=== PATIENT | male | born 1990 | race Caucasian/White ===

== ENCOUNTER 2022-12-29 14:07 | Inpatient (IN) ==
[2022-12-29] MEDS ORDERED: IOPAMIDOL 100 ML BOTTLE IV ONE (14:08)
[2022-12-29] MEDS ORDERED: 0.9 % SODIUM CHLORIDE 500 ML IV ONE (14:49)
--- NOTE | 2022-12-29 15:03 | Emergency Department Note ---
HPI General Chief complaint: Extremity Problem,Nontraumatic Stated complaint: ankle problem Time Seen by Provider: 12/29/22 14:09 Source: patient Mode of arrival: wheelchair Limitations: physical limitation (Unable to bear weight to right foot due to pain) History of Present Illness HPI Narrative: Narrative: 32-year-old male with long history of alcoholic cirrhosis presents to the ER with complaints of pain and swelling to his right ankle that started approximately a week ago. He did have a fall a few days before that in the past year and has a scrape to his left inner leg and a scrape to his right daly. He notes he has not been able to walk due to severe pain. He does not has a history of gout and has stopped drinking alcohol due to his severe jaundice and elevated liver. He notes he has been seeing GI and they diagnosed him with erythema nodosum approximately 1 week ago. Patient notes he has not taken his lactulose for the past 2 days as he has been unable to bear weight but is otherwise compliant Related Data Home Medications Medication Instructions Recorded Confirmed acamprosate 333 mg tablets in a 666 mg PO TID 10/27/22 11/19/22 dose pack escitalopram oxalate 5 mg tablet 5 mg PO HS 10/27/22 11/19/22 folic acid 1 mg tablet 1 mg PO DAILY 10/27/22 11/19/22 hydroxyzine HCl 25 mg tablet 25 mg PO PRN PRN Anxiety 10/27/22 11/19/22 smqowabm-bxekrzfp-vawqo acid 400 1 tab PO DAILY 10/27/22 11/19/22 mcg-vit K 20 mcg-lycop 300 mcg tablet omeprazole 20 mg capsule,delayed 20 mg PO DAILY PRN Acid Reflux 10/27/22 11/19/22 release ondansetron 4 mg disintegrating 8 mg translingual Q8HP PRN Nausea 10/27/22 11/19/22 tablet thiamine HCl (vitamin B1) 100 mg 100 mg PO DAILY 10/27/22 11/19/22 tablet Previous Rx's Medication Instructions Recorded lactulose 20 gram/30 mL oral 20 g (30 mL) PO QDAY #1,200 mL 10/27/22 solution Allergies Allergy/AdvReac Type Severity Reaction Status Date / Time latex Allergy Unknown Rash Verified 12/29/22 14:18 Review of Systems ROS ROS Narrative: Narrative: Constitutional: Reports as per HPI; Denies fever, chills or sweats Cardiovascular: Denies chest pain, palpitations or syncope Respiratory: Denies shortness of breath, cough or wheezes Gastrointestinal: Denies abdominal pain, nausea or vomiting [facility] Narrative Patient History Narrative: Narrative: Medical/Surgical/Family History All Active Problems (Updated 12/29/22 @ 19:21 by CECILIA Cristina) Abdominal pain, right upper quadrant (Acute) Sepsis (Acute) Cellulitis and abscess of right lower extremity (Acute) Alcoholic hepatitis (Acute) Hyperammonemia (Acute) Hyperbilirubinemia (Acute) Social History Smoking Status: Never smoker Alcohol Intake Frequency: does not drink Substance Use: does not use Exam Narrative Narrative: Narrative: General Limitations: physical limitation (Unable to bear weight to right foot due to pain) General appearance: Present alert and in no apparent distress; Absent in distress Eye Eye: Present scleral icterus ENT ENT: Present normal exam Respiratory Respiratory: Present normal lung sounds bilaterally and wheezes; Absent respiratory distress Cardiovascular Cardiovascular: Present normal rhythm and tachycardia Adbominal Abdominal: Present soft; Absent distention, tenderness or guarding Extremities Extremities: Present tenderness and normal capillary refill Expanded Lower Extremity Hip/Pelvis: Present deformity (Significant localized tenderness, erythema with deformity as right medial malleolus is bulging and fluctuant. Neurovascular status intact. Site extremely tender to palpation.) and other (No posterior calf tenderness on exam) Upper leg: Present normal inspection Neurological Neurological: Present alert and oriented X3 Psychiatric Psychiatric: Present normal affect, polite and pleasant Skin Skin: Present warm (WNL) and other (Healing abrasion to left medial upper calf and healing abrasion to anterior right daly that extends ankle. ); Absent normal color (Jaundice) Course Vital Signs Vital signs: Vital Signs Temperature 97.5 F 12/29/22 14:15 Pulse Rate 138 H 12/29/22 14:15 Respiratory Rate 26 H 12/29/22 14:15 Blood Pressure 97/57 12/29/22 14:15 Pulse Oximetry (%) 99 12/29/22 14:15 Oxygen Delivery Method Room Air 12/29/22 14:15 Temperature 97.5 F 12/29/22 14:15 Pulse Rate 124 H 12/29/22 15:42 Respiratory Rate 20 12/29/22 15:15 Blood Pressure 130/60 12/29/22 15:37 Pulse Oximetry (%) 100 12/29/22 15:42 Oxygen Delivery Method Room Air 12/29/22 14:15 MDM MDM Narrative Medical decision making narrative: Narrative: Clinical considerations include but not limited to sepsis, gout, septic arthritis. On arrival a IV is started and patient is given IV fluids per sepsis protocol. CBC, procalcitonin, lactic acid, sed rate, CRP, INR labs are ordered and are pending. Blood cultures are also ordered and are pending. He is given 3.37 mg of Zosyn. Remain concerned about sepsis as patient remains tachycardic and tachypneic. He denies shortness of breath and has clear lung sounds on exam. He is also afebrile. He does have some mild anxiety about the pain. The site is exquisitely tender to touch. His significant other remains at bedside. Contacted orthopedist to obtain admission-unable to track down orthopedist at this time as medical surgical has is found to Contacted hospitalist who requested that we obtain an ammonia level despite patient being alert and oriented. An INR is also ordered. Consulted orthopedist who came to bedside and saw patient and reported the patient would be taken to the OR for a washout either tonight or in the morning. He agreed to admission Contacted the hospitalist who agreed the patient need to be admitted. They will arrange admission at this time. He will be switched to vancomycin at this time. This patient required multiple bedside evaluations including hospitalist, orthopedist. Sepsis Date Sepsis Identified: 12/29/22 Time Sepsis Identified: 15:20 Lab Data 12/29/22 15:00 Labs: Lab Results 12/29/22 12/29/22 12/29/22 Range/Units 15:00 15:00 15:00 WBC 14.7 H (4.5-11.0) K/mcL RBC 2.86 L (4.63-6.08) M/mcL Hgb 9.3 L (13.7-17.5) g/dL Hct 25.5 L (40.1-51.0) % POC Hct 33.0 L (41-55) MCV 89.2 (80.0-100.0) fL MCH 32.5 (26.0-34.0) pg MCHC 36.5 H (31.0-36.0) g/dL RDW 20.3 H (11.5-14.5) % Plt Count 112 L (140-440) K/mcL MPV 10.6 (8.8-12.5) fL Immature Gran % (Auto) 1.3 H (0.0-0.5) % Neut % (Auto) 80.0 H (38.0-78.0) % Lymph % (Auto) 6.1 L (15.5-49.0) % [place] % (Auto) 11.2 (1.0-12.0) % Eos % (Auto) 1.3 (0.0-7.0) % Baso % (Auto) 0.1 (0.0-2.0) % Lymph # (Auto) 0.90 L (1.50-4.80) K/mcL [place] # (Auto) 1.65 H (0.10-0.90) K/mcL Eos # (Auto) 0.19 (0.00-0.70) K/mcL Baso # (Auto) 0.02 (0.00-0.30) K/mcL Immature Gran # 0.19 H (0.00-0.05) K/mcl Absolute Neutrophils 11.76 H (1.80-8.00) K/mcL ESR (0-15) mm/hr POC VBG pH (7.32-7.42) POC VBG pCO2 at Temp (41-51) POC VBG pO2 (25-40) POC VBG HCO3 (24-28) POC VBG Total CO2 (25-29) POC Venous O2 Sat (40-70) POC VBG Base Excess (-2-2) VBG Lactic Acid (0.5-2) POC Sodium 129 L (133-145) POC Potassium 3.5 (3.3-5.1) POC Chloride 97 (96-108) POC Total CO2 20.0 L (22-30) POC Anion Gap 16.0 (8.0-16.0) POC BUN 35 H (6-20) POC Creatinine 1.0 (0.6-1.2) POC Glucose 201 H (70-105) POC WB Ioniz Calcium 1.11 L (1.16-1.32) C-React Prot High Sens 40.2 H (1.0-3.0) mg/L Procalcitonin (<0.10) ng/mL 12/29/22 12/29/22 12/29/22 Range/Units 15:00 15:00 15:01 WBC (4.5-11.0) K/mcL RBC (4.63-6.08) M/mcL Hgb (13.7-17.5) g/dL Hct (40.1-51.0) % POC Hct (41-55) MCV (80.0-100.0) fL MCH (26.0-34.0) pg MCHC (31.0-36.0) g/dL RDW (11.5-14.5) % Plt Count (140-440) K/mcL MPV (8.8-12.5) fL Immature Gran % (Auto) (0.0-0.5) % Neut % (Auto) (38.0-78.0) % Lymph % (Auto) (15.5-49.0) % [place] % (Auto) (1.0-12.0) % Eos % (Auto) (0.0-7.0) % Baso % (Auto) (0.0-2.0) % Lymph # (Auto) (1.50-4.80) K/mcL [place] # (Auto) (0.10-0.90) K/mcL Eos # (Auto) (0.00-0.70) K/mcL Baso # (Auto) (0.00-0.30) K/mcL Immature Gran # (0.00-0.05) K/mcl Absolute Neutrophils (1.80-8.00) K/mcL ESR 6 (0-15) mm/hr POC VBG pH 7.39 (7.32-7.42) POC VBG pCO2 at Temp 32.5 L (41-51) POC VBG pO2 34 (25-40) POC VBG HCO3 19.8 L (24-28) POC VBG Total CO2 21.0 L (25-29) POC Venous O2 Sat 66.0 (40-70) POC VBG Base Excess -5.0 L (-2-2) VBG Lactic Acid 2.4 H (0.5-2) POC Sodium (133-145) POC Potassium (3.3-5.1) POC Chloride (96-108) POC Total CO2 (22-30) POC Anion Gap (8.0-16.0) POC BUN (6-20) POC Creatinine (0.6-1.2) POC Glucose (70-105) POC WB Ioniz Calcium (1.16-1.32) C-React Prot High Sens (1.0-3.0) mg/L Procalcitonin 0.73 H (<0.10) ng/mL Procedures I/D Consent obtained: verbal consent (Orthopedic and DAM TENDER ASSISTANT completed I&D) Site: leg (Right ankle) Side (if applicable): right Sedation/analgesia: none Technique: needle aspiration Amount of fluid: 30 (30 cc of serosanguineous fluid was drained from site) Irrigation: No Packing used?: none Discharge Plan Patient/Caregiver Discharge Instructions Pt seen by DAM TENDER ASSISTANT/PA only: Yes Clinical Impression: Sepsis, Cellulitis and abscess of right lower extremity, Alcoholic hepatitis Patient Disposition: Xfer As Inpt ([facility]) Discharge Date/Time: 12/29/22 19:00
[2022-12-29 15:04] LABS: POC Calcium, Ionized 1.11 (1.16-1.32); POC Potassium 3.5 (3.3-5.1)
[2022-12-29] MEDS: PIPERACILLIN SODIUM/TAZOBACTAM 3.375 GM in DEXTROSE 5% IN WATER 50 ML IV SCH ×2 (15:35→21:44)
[2022-12-29 15:48] LABS: Basophils # (Auto) 0.02 K/mcL (0.00-0.30); Basophils % (Auto) 0.1 % (0.0-2.0); Eosinophils # (Auto) 0.19 K/mcL (0.00-0.70); Eosinophils % (Auto) 1.3 % (0.0-7.0); Hematocrit 25.5 % (40.1-51.0); Hemoglobin 9.3 g/dL (13.7-17.5); Lymphocytes % (Auto) 6.1 % (15.5-49.0); Mean Cell Volume 89.2 fL (80.0-100.0); Mean Corpuscular HGB Conc 36.5 g/dL (31.0-36.0); Mean Platelet Volume 10.6 fL (8.8-12.5); Monocytes # (Auto) 1.65 K/mcL (0.10-0.90); Monocytes % (Auto) 11.2 % (1.0-12.0); Platelet Count 112 K/mcL (140-440); RBC 2.86 M/mcL (4.63-6.08); Red Cell Distribution Width 20.3 % (11.5-14.5); WBC 14.7 K/mcL (4.5-11.0)
--- NOTE | 2022-12-29 15:54 | Cat Scan Report ---
INDICATION: Cellulitis with abscess TECHNIQUE: Axial images through the right ankle. Sagittal and coronal reformatted images. Intravenous contrast material was administered. Scans were performed during venous phase COMPARISON: Previous plain film examination dated 12/15/2022 FINDINGS: There is a subcutaneous fluid collection which is medial and superficial to the medial malleolus. This fluid collection measures 5.7 cm in AP dimension, 2.7 cm in mediolateral dimension, and 6.5 cm in craniocaudal dimension. There are no gas bubbles within this fluid collection. There are superficial veins which traverse this fluid collection. There is no contrast extravasation or pooling. CT appearance is nonspecific. This may be an abscess secondary to nongas forming organisms. Sterile hematoma or seroma are possible. No osseous abnormality. There is no cortical destruction. No evidence for osteomyelitis. Distal tibia is negative. No evidence for tibiotalar joint effusion. Talus and calcaneus are negative. No soft tissue foreign body IMPRESSION: 1. Soft tissue fluid collection superficial to the medial malleolus and distal tibia. This fluid collection measures 5.7 x 2.7 x 6.5 cm 2. No gas bubbles are present but abscess is not excluded 3. Osseous structures are negative. No evidence for osteomyelitis Interpreted and Authenticated by: Donta Brooks 12/29/22
[2022-12-29 17:04] LABS: POC INR 1.7 (0.8-1.2); POC Pro Time 19.9 (11.9-14.5)
--- NOTE | 2022-12-29 17:42 | Internal Med History&Physical ---
HPI History of Present Illness Patient information: Note initiated : 12/29/22 at 5:40 pm Service Date, if different from initiated Date: [] Patient: Lorenzo Iraheta 32 y/o M admitted on for ankle problem. Chief Complaint: [] History of present illness: Patient is a 32 years old male with past medical history of alcoholic cirrhosis with portal hypertension, moderate ascites and splenomegaly, perisplenic and perigastric varices, severe alcoholic hepatitis on prednisone, hyperammonemia, alcohol use disorder, currently off alcohol noted area of redness on his right ankle about a week ago. Patient has been seeing GI on regular basis. Patient is on prednisone 40 mg daily for alcoholic hepatitis for about a month now. He also takes spironolactone for cirrhosis. Patient reports he has been off alcohol for 78 days now. About a week ago he noted redness on his right ankle, GI thought it was erythema nodosum. Since then it has been enlarging in size, becoming painful with superficial skin scaly skin. It is very tender to touch. He reports no fever or chills. He reports no history of MRSA. On presentation patient had tachycardia heart rate 138, tachypnea respiratory rate 26, afebrile, BP 97/57. WBC 14,000 down from 24,000 a month ago, hemoglobin 9.3, platelets 112. Lactic acid 2.4, sodium 129, potassium 3.5, glucose 201. CRP 40, procalcitonin 0.73, ESR 6. CT scan right ankle showed fluid collection medial and superficial to medial malleolus and tibia measuring 6.5 x 5.7 x 2.5 cm. I discussed case with ER and recommended orthopedic consult, CMP, coagulation profile and ammonia level which are still pending. Review of system Patient reports no fever but some chills No headache, no visual problems, no diplopia No neck pain Denies shortness of breath, cough, sputum production No nausea vomiting or diarrhea No dysuria or hematuria Denies excessive thirst or cold Denies depression Physical examination Alert and awake, pleasant male, in no acute distress Skin Normocephalic, atraumatic Scleral icterus present Chest is clear bilaterally S1 and S2, sinus tachycardia, no murmurs heard Abdomen is mildly distended, soft and nontender otherwise. Mild fluid thrill Alert and oriented, no focal deficits Right ankle has 2 distinct area of fluid collection right malleolus, there is erythema, there is a scab but no active discharge, skin is dry. Exquisite tenderness on palpation. No drainage. Distal neurovascular intact. Appropriate mood and pleasant affect Assessment and plan Sepsis. Patient presented with tachycardia heart rate 138, tachypnea respiratory rate 26, leukocytosis 14,000 and right ankle abscess. Right ankle abscess. CT scan showing fluid collection superficial to medial malleolus and tibia measuring 6.5 x 5.7 x 2.5 cm. Empiric coverage with IV Zosyn and vancomycin. Discussed with the ER patient needs orthopedic consult. Blood cultures done. Recommend abscess culture to be sent when aspirated or drained. Alcoholic liver cirrhosis with ascites. Recommend obtaining CMP, coagulation profile and ammonia, particularly important if surgical intervention warranted. Depending on chemistry, if alcoholic hepatitis is improving may need to hold off on steroid due to infection. Will hold off on diuretics for today and plan to resume by tomorrow. Recommend continue follow-up with GI. Hepatic encephalopathy. Currently patient is mentating well. Recommended ED to obtain ammonia level. We will continue with lactulose Alcoholic hepatitis. Patient has been receiving treatment per GI. CMP pending Alcohol use disorder. Patient states he has been clear of alcohol for 78 days now. Encouraged him to remain abstinent. DVT prophylaxis with SCDs. Full code Total time taken 55 minutes. PFSH PFSH All Active Problems (Updated 12/03/22 @ 15:18 by Luis Felipe Palomares MD) Abdominal pain, right upper quadrant (Acute) Alcoholic hepatitis (Acute) Hyperammonemia (Acute) Hyperbilirubinemia (Acute) Social History smoking status: Never smoker MEDS/ALLERGIES Home Medications and Allergies Home Medications Medication Instructions Recorded Confirmed Type acamprosate 333 mg tablets in a 666 mg PO TID 10/27/22 11/19/22 History dose pack escitalopram oxalate 5 mg tablet 5 mg PO HS 10/27/22 11/19/22 History folic acid 1 mg tablet 1 mg PO DAILY 10/27/22 11/19/22 History hydroxyzine HCl 25 mg tablet 25 mg PO PRN PRN Anxiety 10/27/22 11/19/22 History lactulose 20 gram/30 mL oral 20 g (30 mL) PO QDAY #1,200 mL 10/27/22 11/19/22 Rx solution bieaopxs-hyendexn-hihfv acid 400 1 tab PO DAILY 10/27/22 11/19/22 History mcg-vit K 20 mcg-lycop 300 mcg tablet omeprazole 20 mg capsule,delayed 20 mg PO DAILY PRN Acid Reflux 10/27/22 11/19/22 History release ondansetron 4 mg disintegrating 8 mg translingual Q8HP PRN Nausea 10/27/22 11/19/22 History tablet thiamine HCl (vitamin B1) 100 mg 100 mg PO DAILY 10/27/22 11/19/22 History tablet Allergies Allergy/AdvReac Type Severity Reaction Status Date / Time latex Allergy Unknown Rash Verified 12/29/22 14:18 EXAM Constitutional Vitals: Temp Pulse Resp BP Pulse Ox O2 Del Method 97.5 F 128 H 20 111/42 100 Room Air 12/29/22 14:15 12/29/22 17:08 12/29/22 15:15 12/29/22 17:08 12/29/22 17:08 12/29/22 14:15 DATA Data Completed and Pending Labs: Labs from last 24 hours 12/29/22 12/29/22 12/29/22 17:01 16:47 16:47 WBC RBC Hgb Hct POC Hct MCV MCH MCHC RDW Plt Count MPV Immature Gran % (Auto) Neut % (Auto) Lymph % (Auto) [place] % (Auto) Eos % (Auto) Baso % (Auto) Lymph # (Auto) [place] # (Auto) Eos # (Auto) Baso # (Auto) Immature Gran # Absolute Neutrophils ESR POC PT 19.9 H POC INR 1.7 H POC VBG pH POC VBG pCO2 at Temp POC VBG pO2 POC VBG HCO3 POC VBG Total CO2 POC Venous O2 Sat POC VBG Base Excess VBG Lactic Acid POC Sodium Sodium POC Potassium Potassium POC Chloride Chloride Carbon Dioxide POC Total CO2 Anion Gap POC Anion Gap POC BUN BUN Creatinine POC Creatinine GFR Calculation Glucose POC Glucose Calcium POC WB Ioniz Calcium Total Bilirubin GGT Pending AST ALT Alkaline Phosphatase Ammonia 60 C-React Prot High Sens Total Protein Albumin Globulin Albumin/Globulin Ratio Procalcitonin 12/29/22 12/29/22 12/29/22 16:47 15:01 15:00 WBC RBC Hgb Hct POC Hct MCV MCH MCHC RDW Plt Count MPV Immature Gran % (Auto) Neut % (Auto) Lymph % (Auto) [place] % (Auto) Eos % (Auto) Baso % (Auto) Lymph # (Auto) [place] # (Auto) Eos # (Auto) Baso # (Auto) Immature Gran # Absolute Neutrophils ESR POC PT POC INR POC VBG pH 7.39 POC VBG pCO2 at Temp 32.5 L POC VBG pO2 34 POC VBG HCO3 19.8 L POC VBG Total CO2 21.0 L POC Venous O2 Sat 66.0 POC VBG Base Excess -5.0 L VBG Lactic Acid 2.4 H POC Sodium Sodium Pending POC Potassium Potassium Pending POC Chloride Chloride Pending Carbon Dioxide Pending POC Total CO2 Anion Gap Pending POC Anion Gap POC BUN BUN Pending Creatinine Pending POC Creatinine GFR Calculation Pending Glucose Pending POC Glucose Calcium Pending POC WB Ioniz Calcium Total Bilirubin Pending GGT AST Pending ALT Pending Alkaline Phosphatase Pending Ammonia C-React Prot High Sens Total Protein Pending Albumin Pending Globulin Pending Albumin/Globulin Ratio Pending Procalcitonin 0.73 H 12/29/22 12/29/22 12/29/22 15:00 15:00 15:00 WBC RBC Hgb Hct POC Hct 33.0 L MCV MCH MCHC RDW Plt Count MPV Immature Gran % (Auto) Neut % (Auto) Lymph % (Auto) [place] % (Auto) Eos % (Auto) Baso % (Auto) Lymph # (Auto) [place] # (Auto) Eos # (Auto) Baso # (Auto) Immature Gran # Absolute Neutrophils ESR 6 POC PT POC INR POC VBG pH POC VBG pCO2 at Temp POC VBG pO2 POC VBG HCO3 POC VBG Total CO2 POC Venous O2 Sat POC VBG Base Excess VBG Lactic Acid POC Sodium 129 L Sodium POC Potassium 3.5 Potassium POC Chloride 97 Chloride Carbon Dioxide POC Total CO2 20.0 L Anion Gap POC Anion Gap 16.0 POC BUN 35 H BUN Creatinine POC Creatinine 1.0 GFR Calculation Glucose POC Glucose 201 H Calcium POC WB Ioniz Calcium 1.11 L Total Bilirubin GGT AST ALT Alkaline Phosphatase Ammonia C-React Prot High Sens 40.2 H Total Protein Albumin Globulin Albumin/Globulin Ratio Procalcitonin 12/29/22 15:00 WBC 14.7 H RBC 2.86 L Hgb 9.3 L Hct 25.5 L POC Hct MCV 89.2 MCH 32.5 MCHC 36.5 H RDW 20.3 H Plt Count 112 L MPV 10.6 Immature Gran % (Auto) 1.3 H Neut % (Auto) 80.0 H Lymph % (Auto) 6.1 L [place] % (Auto) 11.2 Eos % (Auto) 1.3 Baso % (Auto) 0.1 Lymph # (Auto) 0.90 L [place] # (Auto) 1.65 H Eos # (Auto) 0.19 Baso # (Auto) 0.02 Immature Gran # 0.19 H Absolute Neutrophils 11.76 H ESR POC PT POC INR POC VBG pH POC VBG pCO2 at Temp POC VBG pO2 POC VBG HCO3 POC VBG Total CO2 POC Venous O2 Sat POC VBG Base Excess VBG Lactic Acid POC Sodium Sodium POC Potassium Potassium POC Chloride Chloride Carbon Dioxide POC Total CO2 Anion Gap POC Anion Gap POC BUN BUN Creatinine POC Creatinine GFR Calculation Glucose POC Glucose Calcium POC WB Ioniz Calcium Total Bilirubin GGT AST ALT Alkaline Phosphatase Ammonia C-React Prot High Sens Total Protein Albumin Globulin Albumin/Globulin Ratio Procalcitonin A/P Time Spent With Patient Time: Total time spent is greater than 50% in coordination of care (as documented) at patient's floor/unit and/or counseling patient:
[2022-12-29 17:52] LABS: ALT/SGPT 93 U/L (<40); AST/SGOT 56 U/L (<40); Albumin 2.3 gm/dL (3.2-5.2); Albumin/Globulin Ratio 1.3 (1.0-2.3); Alkaline Phosphatase 154 U/L (39-117); Bilirubin,Total 11.9 mg/dL (0.1-1.0); Blood Urea Nitrogen 31 mg/dL (6-20); Calcium 7.9 mg/dL (8.6-10.4); Carbon Dioxide 19 mmol/L (22-30); Chloride 95 mmol/L (96-108); Globulin 1.8 gm/dL (2.2-3.7); Glomerular Filtration Rate 120; Glucose 171 mg/dL (70-105)
[2022-12-29] MEDS: VANCOMYCIN 1,000 MG in 0.9 % SODIUM CHLORIDE 250 ML IV SCH (17:55)
[2022-12-29] MEDS ORDERED: WATER IV SCH (18:00)
[2022-12-29] MEDS ORDERED: PIPERACILLIN SODIUM IV SCH (18:00)
[2022-12-29] MEDS ORDERED: TAZOBACTAM IV SCH (18:00)
[2022-12-29] MEDS ORDERED: DEXTROSE 5% IV SCH (18:00)
[2022-12-29] MEDS ORDERED: KETOROLAC 30 MG/ML VIAL IV ONE (18:22)
[2022-12-29] MEDS ORDERED: OMEPRAZOLE 20 MG CAPSULE PO PRN (19:42)
[2022-12-29] MEDS ORDERED: hydrOXYzine 25 MG TABLET PO PRN (19:42)
[2022-12-29] MEDS ORDERED: TEMAZEPAM 15 MG CAPSULE PO PRN (21:00)
[2022-12-29] MEDS ORDERED: ONDANSETRON 4 MG ODT TABLET SL PRN (21:04)
[2022-12-29] MEDS: HYDROmorphone 0.5 MG/0.5 ML SYRINGE IV PRN (21:06)
[2022-12-29] MEDS ORDERED: HYDROmorphone 0.5 MG/0.5 ML SYRINGE ONE (21:06)
[2022-12-29] MEDS: ESCITALOPRAM 10 MG TABLET PO SCH (21:28)
[2022-12-30] MEDS: HYDROmorphone 0.5 MG/0.5 ML SYRINGE IV PRN ×6 (01:01→23:35)
[2022-12-30] MEDS: VANCOMYCIN 1,000 MG in 0.9 % SODIUM CHLORIDE 250 ML IV SCH ×3 (02:07→19:37)
[2022-12-30] MEDS: PIPERACILLIN SODIUM/TAZOBACTAM 3.375 GM in DEXTROSE 5% IN WATER 50 ML IV SCH ×5 (03:22→23:35)
--- NOTE | 2022-12-30 07:40 | Consultation ---
DATE OF CONSULTATION: 12/29/2022 HISTORY OF PRESENT ILLNESS: This is a consultation from the emergency room for a septic ankle. He has had quite a bit of pain on the right ankle that started about a week ago. It has worsened to the point where he cannot ambulate. He has a history of liver failure and he is taking steroids and it has been hard for him to take his regular medications. Upon arrival, he had a high heart rate and there is worry about sepsis. Immediate workup was begun but revealing that his INR and clotting factors seemed to be normal or doing quite well. His ammonia level is for he having a good range. PAST MEDICAL HISTORY: He has been managed very closely for this liver failure secondary to alcohol use. His other health problems are multiple. MEDICATIONS: Multiple with lactulose and steroids and he has received Zosyn today upon arrival. He also has a past medical history of gout. He is not on medications for gout. PHYSICAL EXAMINATION: GENERAL: Very pleasant male who gives a good history. He does have icterus and jaundice. He does have a high heart rate of about 130 but no acute tachypnea. CHEST: His lungs are clear to breathing. MUSCULOSKELETAL: He moves his foot but very little with severe pain. ABDOMEN: Somewhat distended as one would expect with liver failure. He does have a yellow hue to the skin even distally in his feet. He is very tender in the light touch, consistent with gout. HEART: Heart rate 130s. No murmurs, rubs, or gallops. IMAGING: Scan of the ankle shows an abscess on the medial aspect of the ankle and extends into the joint. Could not see osteomyelitis. DIAGNOSIS: Right septic ankle, possible gout. Today, I recommended aspirating and I and D'ing the ankle. Today, I did aspirate the abscess about 5 mL. This was sent for cultures and sensitivities and Gram stain and cell count. I then used a 15 blade to make a 1 cm open area and allow the purulent bloody brownish material extravasate on the table. This gave the patient significant relief. At this point, I have recommended just starting the antibiotics, possibly washing this out tomorrow after he receives a few doses and he is stable and he agrees with this plan as does his . He understands the risk of surgery. It might be something we could do at the bedside but he needs to be packed and possibly even a wound VAC over this area or drain as he is going to have skin issues around the ankle. He agrees to proceed. RBH:miryam Job ID: [id number] Doc ID: [id number] Miles Grubbs MD
[2022-12-30] MEDS ORDERED: VANCOMYCIN PER PHARMACY IV SCH (09:00)
[2022-12-30 09:26] LABS: Basophils # (Auto) 0.03 K/mcL (0.00-0.30); Basophils % (Auto) 0.3 % (0.0-2.0); Eosinophils # (Auto) 0.45 K/mcL (0.00-0.70); Eosinophils % (Auto) 3.9 % (0.0-7.0); Hemoglobin 9.4 g/dL (13.7-17.5); Lymphocytes # (Auto) 1.26 K/mcL (1.50-4.80); Lymphocytes % (Auto) 10.8 % (15.5-49.0); Mean Cell Volume 87.8 fL (80.0-100.0); Mean Corpuscular HGB Conc 36.2 g/dL (31.0-36.0); Mean Platelet Volume 10.5 fL (8.8-12.5); Monocytes # (Auto) 1.39 K/mcL (0.10-0.90); Monocytes % (Auto) 11.9 % (1.0-12.0); Neutrophils % (Auto) 72.5 % (38.0-78.0); Platelet Count 102 K/mcL (140-440); RBC 2.96 M/mcL (4.63-6.08); Red Cell Distribution Width 19.9 % (11.5-14.5); WBC 11.7 K/mcL (4.5-11.0)
[2022-12-30 09:53] LABS: ALT/SGPT 93 U/L (<40); AST/SGOT 53 U/L (<40); Albumin 2.2 gm/dL (3.2-5.2); Alkaline Phosphatase 161 U/L (39-117); Bilirubin,Total 13.2 mg/dL (0.1-1.0); Blood Urea Nitrogen 34 mg/dL (6-20); Calcium 7.9 mg/dL (8.6-10.4); Carbon Dioxide 20 mmol/L (22-30); Chloride 102 mmol/L (96-108); Globulin 2.1 gm/dL (2.2-3.7); Glucose 109 mg/dL (70-105)
[2022-12-30] MEDS: MULTIVIT,THER IRON,CA,FA & MIN 1 TABLET PO SCH (12:07)
[2022-12-30] MEDS: FOLIC ACID 1 MG TABLET PO SCH (12:07)
[2022-12-30] MEDS: THIAMINE 100 MG TABLET PO SCH (12:08)
[2022-12-30] MEDS ORDERED: LIDOCAINE HCL/PF 100 MG/5 ML SYRINGE IV ONE (16:08)
[2022-12-30] MEDS ORDERED: DEXAMETHASONE 10 MG/ML VIAL ONE (16:08)
[2022-12-30] MEDS ORDERED: MIDAZOLAM 2 MG/2 ML VIAL ONE (16:08)
[2022-12-30] MEDS ORDERED: ONDANSETRON 4 MG/2 ML VIAL ONE (16:08)
[2022-12-30] MEDS ORDERED: PHENYLephrine 1 MG/10 ML SYRINGE (ANEST) ONE (16:08)
[2022-12-30] MEDS ORDERED: MAGNESIUM SULFATE 2 GM/50 ML BAG IV ONE (16:08)
[2022-12-30] MEDS ORDERED: PROPOFOL 200 MG/20 ML VIAL IV ONE (16:08)
[2022-12-30] MEDS ORDERED: fentaNYL 100 MCG/2 ML VIAL IV ONE (16:08)
[2022-12-30] MEDS ORDERED: LACTATED RINGERS 1,000 ML IV SCH (16:30)
[2022-12-30] MEDS ORDERED: diphenhydrAMINE 50 MG/ML VIAL IV PRN (16:30)
[2022-12-30] MEDS ORDERED: ONDANSETRON 4 MG/2 ML VIAL IV PRN (16:30)
[2022-12-30] MEDS ORDERED: NALOXONE HCL 0.4 MG/ML VIAL IV PRN (16:30)
[2022-12-30] MEDS ORDERED: fentaNYL 100 MCG/2 ML VIAL IV PRN (16:30)
[2022-12-30] MEDS ORDERED: PROMETHAZINE 25 MG/ML VIAL IV PRN (16:30)
[2022-12-30] MEDS ORDERED: MEPERIDINE 25 MG/ML VIAL IV PRN (16:30)
[2022-12-30] MEDS ORDERED: LACTATED RINGERS 250 ML IV PRN (16:30)
[2022-12-30] MEDS ORDERED: IPRATROPIUM/ALBUTEROL 3 ML AMPUL.NEB NEB PRN (16:30)
--- NOTE | 2022-12-30 17:01 | Brief Operative Note ---
Brief Operative Note Date of procedure: 12/30/22 Pre-op diagnosis: Rightr infected ankle with osteomylitis Post-op diagnosis: same Procedure: Right ankle infection and abscess I and D and synovectomy Grafts/Implants: Yes Anesthesia: GETA Findings: above Complications: none Surgeon: Miles Grubbs Lumber Carrier Operator: Mars Morillo Estimated blood loss (cc): 10 Tourniquet Time (Minutes): 20 Specimens Removed/Pathology: none sent Condition: stable Disposition: PACU
--- NOTE | 2022-12-30 17:01 | Internal Med Progress Note ---
SUBJECTIVE Subjective Patient information: Note initiated : 12/30/22 at 4:59 pm Service Date, if different from initiated Date: [] Patient: Lorenzo Iraheta 32 y/o M admitted on 12/29/22 for Sepsis in right ankle. Chief Complaint: [] Additional PMFSH (Level 3 Only): Patient is a 32 years old male with past medical history of alcoholic cirrhosis with portal hypertension, moderate ascites and splenomegaly, perisplenic and perigastric varices, severe alcoholic hepatitis on prednisone, hyperammonemia, alcohol use disorder, currently off alcohol noted area of redness on his right ankle about a week ago. Patient has been seeing GI on regular basis. Patient is on prednisone 40 mg daily for alcoholic hepatitis for about a month now. He also takes spironolactone for cirrhosis. Patient reports he has been off alcohol for 78 days now. About a week ago he noted redness on his right ankle, GI thought it was erythema nodosum. Since then it has been enlarging in size, becoming painful with superficial skin scaly skin. It is very tender to touch. He reports no fever or chills. He reports no history of MRSA. On presentation patient had tachycardia heart rate 138, tachypnea respiratory rate 26, afebrile, BP 97/57. WBC 14,000 down from 24,000 a month ago, hemoglobin 9.3, platelets 112. Lactic acid 2.4, sodium 129, potassium 3.5, glucose 201. CRP 40, procalcitonin 0.73, ESR 6. CT scan right ankle showed fluid collection medial and superficial to medial malleolus and tibia measuring 6.5 x 5.7 x 2.5 cm. /8. Low-grade fever 99.3 last night. Girlfriend thinks patient is a bit loopy however he was alert and oriented. Patient is going for ankle washout later today per ortho. Leukocytosis trended down to 11,000. LFTs stable Review of system Patient reports no fever no chills No headache, no visual problems, no diplopia No neck pain Denies shortness of breath, cough, sputum production No nausea vomiting or diarrhea No dysuria or hematuria Denies excessive thirst or cold Denies depression Physical examination Alert and awake, pleasant male, in no acute distress Skin Normocephalic, atraumatic Scleral icterus present Chest is clear bilaterally S1 and S2, sinus tachycardia, no murmurs heard Abdomen is mildly distended, soft and nontender otherwise. Mild fluid thrill Alert and oriented, no focal deficits Right ankle swelling, covered in dressing Appropriate mood and pleasant affect Assessment and plan Sepsis. Patient presented with tachycardia heart rate 138, tachypnea respiratory rate 26, leukocytosis 14,000 and right ankle abscess. Right ankle abscess. CT scan showing fluid collection superficial to medial malleolus and tibia measuring 6.5 x 5.7 x 2.5 cm. Preliminary culture growing Staph aureus moderate growth. MRSA screen is negative susceptibility to follow. Discussed with Dr. Grubbs, patient had almost baseball size abscess cavity which has been drained. He did not think joint was involved. If culture final growth is MSSA then Augmentin would be an appropriate therapy. Currently patient is on IV Zosyn and vancomycin which will be continued for today. Alcoholic liver cirrhosis with ascites. Liver profile stable. Resume diuretics and prednisone. Recommend continue follow-up with GI. Hepatic encephalopathy. Resume lactulose Alcoholic hepatitis. Patient has been receiving treatment per GI. LFTs improving. Alcohol use disorder. Patient states he has been clear of alcohol for 78 days now. Encouraged him to remain abstinent. DVT prophylaxis with SCDs. Full code Total time taken 40 minutes. Constitutional Vitals: Vital Signs Temp Pulse Resp BP Pulse Ox O2 Del Method 97.3 F 109 H 20 123/43 100 Room Air 12/30/22 11:57 12/30/22 11:57 12/30/22 11:57 12/30/22 11:57 12/30/22 11:57 12/30/22 11:57 Period Temp Pulse Resp BP Sys/Flores Pulse Ox O2 Del Method O2 Flow Rate Last 24 Hr 97.3 F-99.3 F 109-130 16-20 110-145/42-89 95-100 Nasal Cannula-Room Air Intake and Output 12/30/22 12/30/22 12/30/22 03:59 11:59 19:59 Intake Total 550 350 50 Output Total 250 250 500 Balance 300 100 -450 Weight 79.742 kg 79.742 kg Patient Weight 12/31/22 03:59 Weight 79.742 kg Intake & Output: Intake & Output 12/30/22 12/30/22 12/30/22 03:59 11:59 19:59 Intake Total 550 350 50 Output Total 250 250 500 Balance 300 100 -450 Weight 79.742 kg 79.742 kg Intake: IV 550 350 50 Zosyn 3.375 gm In Dextrose 5% 50 100 50 in Water 50 ml @ 100 mls/hr IV Q6H [facility] Rx#:[id number] Vancomycin 1,000 mg In Sodium 500 250 Chloride 0.9% 250 ml @ 250 mls/ hr IV Q8H [facility] Rx#:[id number] Oral 0 Output: Void Amount 250 250 500 Other: Urine Appearance Clear Clear Clear Urine Color Tea Colored Light Cammy Bright Yellow Urine Odor Normal OBJ DATA Labs 12/30/22 08:29 12/30/22 08:29 Labs: Abnormal Lab Results 12/30/22 12/30/22 12/29/22 08:29 08:29 17:01 WBC 11.7 H RBC 2.96 L Hgb 9.4 L Hct 26.0 L POC Hct MCHC 36.2 H RDW 19.9 H Plt Count 102 L Immature Gran % (Auto) 0.6 H Neut % (Auto) Lymph % (Auto) 10.8 L Lymph # (Auto) 1.26 L Person # (Auto) 1.39 H Immature Gran # 0.07 H Absolute Neutrophils 8.45 H POC PT 19.9 H POC INR 1.7 H POC VBG pCO2 at Temp POC VBG HCO3 POC VBG Total CO2 POC VBG Base Excess VBG Lactic Acid POC Sodium Sodium 132 L Potassium Chloride Carbon Dioxide 20 L POC Total CO2 POC BUN BUN 34 H Glucose 109 H POC Glucose Calcium 7.9 L POC WB Ioniz Calcium Total Bilirubin 13.2 H GGT AST 53 H ALT 93 H Alkaline Phosphatase 161 H C-React Prot High Sens Total Protein 4.3 L Albumin 2.2 L Globulin 2.1 L Procalcitonin 12/29/22 12/29/22 12/29/22 16:47 16:47 15:01 WBC RBC Hgb Hct POC Hct MCHC RDW Plt Count Immature Gran % (Auto) Neut % (Auto) Lymph % (Auto) Lymph # (Auto) Person # (Auto) Immature Gran # Absolute Neutrophils POC PT POC INR POC VBG pCO2 at Temp 32.5 L POC VBG HCO3 19.8 L POC VBG Total CO2 21.0 L POC VBG Base Excess -5.0 L VBG Lactic Acid 2.4 H POC Sodium Sodium 126 L Potassium 3.2 L Chloride 95 L Carbon Dioxide 19 L POC Total CO2 POC BUN BUN 31 H Glucose 171 H POC Glucose Calcium 7.9 L POC WB Ioniz Calcium Total Bilirubin 11.9 H GGT 140 H AST 56 H ALT 93 H Alkaline Phosphatase 154 H C-React Prot High Sens Total Protein 4.1 L Albumin 2.3 L Globulin 1.8 L Procalcitonin 12/29/22 12/29/22 12/29/22 15:00 15:00 15:00 WBC RBC Hgb Hct POC Hct 33.0 L MCHC RDW Plt Count Immature Gran % (Auto) Neut % (Auto) Lymph % (Auto) Lymph # (Auto) Person # (Auto) Immature Gran # Absolute Neutrophils POC PT POC INR POC VBG pCO2 at Temp POC VBG HCO3 POC VBG Total CO2 POC VBG Base Excess VBG Lactic Acid POC Sodium 129 L Sodium Potassium Chloride Carbon Dioxide POC Total CO2 20.0 L POC BUN 35 H BUN Glucose POC Glucose 201 H Calcium POC WB Ioniz Calcium 1.11 L Total Bilirubin GGT AST ALT Alkaline Phosphatase C-React Prot High Sens 40.2 H Total Protein Albumin Globulin Procalcitonin 0.73 H 12/29/22 15:00 WBC 14.7 H RBC 2.86 L Hgb 9.3 L Hct 25.5 L POC Hct MCHC 36.5 H RDW 20.3 H Plt Count 112 L Immature Gran % (Auto) 1.3 H Neut % (Auto) 80.0 H Lymph % (Auto) 6.1 L Lymph # (Auto) 0.90 L Person # (Auto) 1.65 H Immature Gran # 0.19 H Absolute Neutrophils 11.76 H POC PT POC INR POC VBG pCO2 at Temp POC VBG HCO3 POC VBG Total CO2 POC VBG Base Excess VBG Lactic Acid POC Sodium Sodium Potassium Chloride Carbon Dioxide POC Total CO2 POC BUN BUN Glucose POC Glucose Calcium POC WB Ioniz Calcium Total Bilirubin GGT AST ALT Alkaline Phosphatase C-React Prot High Sens Total Protein Albumin Globulin Procalcitonin Meds: Medications Albuterol/Ipratropium (Ipratropium/Albuterol 3 Ml Ampul.Neb) 3 ml NEB ONCE PRN PRN Reason: Wheezing Stop: 12/30/22 18:30 Diphenhydramine HCl (Diphenhydramine 50 Mg/Ml Vial) 25 mg IV ONCE PRN PRN Reason: ITCH Stop: 12/30/22 18:30 Escitalopram Oxalate (Escitalopram 10 Mg Tablet) 5 mg PO HS [facility] Last Admin: 12/29/22 21:28 Dose: Not Given Fentanyl (Fentanyl 100 Mcg/2 Ml Vial) 25 mcg IV Q2M PRN PRN Reason: Pain Stop: 12/30/22 18:30 Folic Acid (Folic Acid 1 Mg Tablet) 1 mg PO DAILY [facility] Last Admin: 12/30/22 12:07 Dose: Not Given Hydromorphone HCl (Hydromorphone 0.5 Mg/0.5 Ml Syringe) 0.5 mg IV Q4HP PRN; Protocol PRN Reason: Per Pain Protocol Last Admin: 12/30/22 12:22 Dose: 0.5 mg Hydroxyzine HCl (Hydroxyzine 25 Mg Tablet) 25 mg PO DAILYP PRN PRN Reason: Anxiety Piperacillin Sod/Tazobactam (Sod 3.375 gm/ Dextrose) 50 mls @ 100 mls/hr IV Q6H [facility]; Protocol Last Infusion: 12/30/22 13:56 Dose: Infused Vancomycin HCl 1,000 mg/ (Sodium Chloride) 250 mls @ 250 mls/hr IV Q8H [facility] Last Infusion: 12/30/22 10:26 Dose: Infused Lactated Ringer's (Lactated Ringers) 1,000 mls @ 0 mls/hr IV PRN PRN PRN Reason: Hypovolemia Stop: 12/30/22 18:30 Lactated Ringer's (Lactated Ringers) 1,000 mls @ 20 mls/hr IV .Q24H [facility] Stop: 12/30/22 18:30 Iron Carb/Multivit/Bilingual Teacher/Folic Acid (Multivit,Ther Iron,Ca,Fa & Min 1 Tablet) 1 tab PO DAILY [facility] Last Admin: 12/30/22 12:07 Dose: Not Given Lactulose (Lactulose 20 Gm/30 Ml Oral.Jennifer) 20 gm PO DAILY [facility] Meperidine HCl (Meperidine 25 Mg/Ml Vial) 12.5 mg IV Q5M PRN PRN Reason: Shivering Stop: 12/30/22 18:30 Naloxone HCl (Naloxone Hcl 0.4 Mg/Ml Vial) 0.1 mg IV Q2MIN PRN PRN Reason: Opiate Reversal Stop: 12/30/22 18:30 Omeprazole (Omeprazole 20 Mg Capsule) 20 mg PO DAILYP PRN PRN Reason: Acid Reflux Ondansetron HCl (Ondansetron 4 Mg Odt Tablet) 4 mg SL Q8HP PRN PRN Reason: Nausea Ondansetron HCl (Ondansetron 4 Mg/2 Ml Vial) 4 mg IV ONCE PRN PRN Reason: Nausea And Vomiting Stop: 12/30/22 18:30 Promethazine HCl (Promethazine 25 Mg/Ml Vial) 6.25 mg IV Q15M PRN PRN Reason: Nausea And Vomiting Stop: 12/30/22 18:30 Temazepam (Temazepam 15 Mg Capsule) 15 mg PO HSP PRN PRN Reason: Insomnia Thiamine HCl (Thiamine 100 Mg Tablet) 100 mg PO DAILY [facility] Last Admin: 12/30/22 12:08 Dose: Not Given Vancomycin HCl (Vancomycin Per Pharmacy) 1 order IV UD [facility]; Protocol A/P Time Spent With Patient Time: Total time spent is greater than 50% in coordination of care (as documented) at patient's floor/unit and/or counseling patient:
[2022-12-30] MEDS ORDERED: predniSONE 20 MG TABLET PO SCH (17:05)
--- NOTE | 2022-12-30 18:09 | Internal Med Progress Note ---
SUBJECTIVE Subjective Patient information: Note initiated : 12/30/22 at 6:02 pm Service Date, if different from initiated Date: [] Patient: Lorenzo Iraheta 32 y/o M admitted on 12/29/22 for Sepsis in right ankle. Chief Complaint: [] Principal diagnosis: Abscess/alcoholic hepatitis Interval history: Donta is 32 year old white male well known to my clinic for acute alcoholic hepatitis. He presented to our clinic with decompensated liver disease 5-6 weeks ago after discharge from a hospital in [place] where he was admitted for alcohol withdrawal and alcoholic hepatitis. Shortly after discharged, he had increased jaundice and Maddrey's score was quite elevated in the high 70s. He was started on prednisone with improvement. Several weeks ago, he presented with a migratory, nodular rash on his lower extremities over his right ankle and left knee. Xray was unremarkable and US was recommended but he had a lapse in insurance and could not get this done. He had some leukocytosis and prednisone taper was attempted but he had worsening liver function and his previous dose of 40mg was resumed. He seemed to have transient improvement in his symptoms with increased prednisone. Pain intensified over the last week and he was recommended to come to the ER where right ankle abscess was drained. He underwent washout today. he continues to abstain from alcohol but anxiety is poorly controlled. He has been referred to Dr. Chopra as an outpatient but has not been able to return calls for an appointment as his girlfriend has also been ill. Therefore quetiapine was added to his SSRI and hydroxyzine. Constitutional Vitals: Vital Signs Temp Pulse Resp BP Pulse Ox O2 Del Method O2 Flow Rate 97.0 F 107 H 26 H 111/57 99 Room Air 0 12/30/22 17:39 12/30/22 17:39 12/30/22 17:39 12/30/22 17:37 12/30/22 17:39 12/30/22 11:57 12/30/22 17:35 Period Temp Pulse Resp BP Sys/Flores Pulse Ox O2 Del Method O2 Flow Rate Last 24 Hr 97.0 F-99.3 F 97-130 10-26 100-145/43-89 95-100 Nasal Cannula- Room Air 0-0 Intake and Output 12/30/22 12/30/22 12/30/22 03:59 11:59 19:59 Intake Total 550 350 250 Output Total 250 250 500 Balance 300 100 -250 Weight 175 lb 12.8 oz 175 lb 12.8 oz Patient Weight 12/31/22 03:59 Weight 175 lb 12.8 oz Intake & Output: Intake & Output 12/30/22 12/30/22 12/30/22 03:59 11:59 19:59 Intake Total 550 350 250 Output Total 250 250 500 Balance 300 100 -250 Weight 175 lb 12.8 oz 175 lb 12.8 oz Intake: IV 550 350 50 Zosyn 3.375 gm In Dextrose 5% 50 100 50 in Water 50 ml @ 100 mls/hr IV Q6H [facility] Rx#:[id number] Vancomycin 1,000 mg In Sodium 500 250 Chloride 0.9% 250 ml @ 250 mls/ hr IV Q8H [facility] Rx#:[id number] Oral 0 IV - Manual Only 200 Output: Void Amount 250 250 500 Other: Urine Appearance Clear Clear Clear Urine Color Tea Colored Light Cammy Bright Yellow Urine Odor Normal General appearance: cooperative and no acute distress Head Head exam: Present atraumatic, normal inspection and normocephalic Eye Eye exam: Present scleral icterus; Absent periorbital swelling Neck Neck exam: Present normal inspection Respiratory Respiratory exam: Absent respiratory distress Extremities Exam Additional comments: right ankle dressing CDI with JULES drain with serosanguinous drainage Neurological Exam Neurological exam: Present alert OBJ DATA Labs 12/30/22 08:29 12/30/22 08:29 Labs: Abnormal Lab Results 12/30/22 12/30/22 12/29/22 08:29 08:29 17:01 WBC 11.7 H RBC 2.96 L Hgb 9.4 L Hct 26.0 L POC Hct MCHC 36.2 H RDW 19.9 H Plt Count 102 L Immature Gran % (Auto) 0.6 H Neut % (Auto) Lymph % (Auto) 10.8 L Lymph # (Auto) 1.26 L Harding # (Auto) 1.39 H Immature Gran # 0.07 H Absolute Neutrophils 8.45 H POC PT 19.9 H POC INR 1.7 H POC VBG pCO2 at Temp POC VBG HCO3 POC VBG Total CO2 POC VBG Base Excess VBG Lactic Acid POC Sodium Sodium 132 L Potassium Chloride Carbon Dioxide 20 L POC Total CO2 POC BUN BUN 34 H Glucose 109 H POC Glucose Calcium 7.9 L POC WB Ioniz Calcium Total Bilirubin 13.2 H GGT AST 53 H ALT 93 H Alkaline Phosphatase 161 H C-React Prot High Sens Total Protein 4.3 L Albumin 2.2 L Globulin 2.1 L Procalcitonin 12/29/22 12/29/22 12/29/22 16:47 16:47 15:01 WBC RBC Hgb Hct POC Hct MCHC RDW Plt Count Immature Gran % (Auto) Neut % (Auto) Lymph % (Auto) Lymph # (Auto) Harding # (Auto) Immature Gran # Absolute Neutrophils POC PT POC INR POC VBG pCO2 at Temp 32.5 L POC VBG HCO3 19.8 L POC VBG Total CO2 21.0 L POC VBG Base Excess -5.0 L VBG Lactic Acid 2.4 H POC Sodium Sodium 126 L Potassium 3.2 L Chloride 95 L Carbon Dioxide 19 L POC Total CO2 POC BUN BUN 31 H Glucose 171 H POC Glucose Calcium 7.9 L POC WB Ioniz Calcium Total Bilirubin 11.9 H GGT 140 H AST 56 H ALT 93 H Alkaline Phosphatase 154 H C-React Prot High Sens Total Protein 4.1 L Albumin 2.3 L Globulin 1.8 L Procalcitonin 12/29/22 12/29/22 12/29/22 15:00 15:00 15:00 WBC RBC Hgb Hct POC Hct 33.0 L MCHC RDW Plt Count Immature Gran % (Auto) Neut % (Auto) Lymph % (Auto) Lymph # (Auto) Harding # (Auto) Immature Gran # Absolute Neutrophils POC PT POC INR POC VBG pCO2 at Temp POC VBG HCO3 POC VBG Total CO2 POC VBG Base Excess VBG Lactic Acid POC Sodium 129 L Sodium Potassium Chloride Carbon Dioxide POC Total CO2 20.0 L POC BUN 35 H BUN Glucose POC Glucose 201 H Calcium POC WB Ioniz Calcium 1.11 L Total Bilirubin GGT AST ALT Alkaline Phosphatase C-React Prot High Sens 40.2 H Total Protein Albumin Globulin Procalcitonin 0.73 H 12/29/22 15:00 WBC 14.7 H RBC 2.86 L Hgb 9.3 L Hct 25.5 L POC Hct MCHC 36.5 H RDW 20.3 H Plt Count 112 L Immature Gran % (Auto) 1.3 H Neut % (Auto) 80.0 H Lymph % (Auto) 6.1 L Lymph # (Auto) 0.90 L Harding # (Auto) 1.65 H Immature Gran # 0.19 H Absolute Neutrophils 11.76 H POC PT POC INR POC VBG pCO2 at Temp POC VBG HCO3 POC VBG Total CO2 POC VBG Base Excess VBG Lactic Acid POC Sodium Sodium Potassium Chloride Carbon Dioxide POC Total CO2 POC BUN BUN Glucose POC Glucose Calcium POC WB Ioniz Calcium Total Bilirubin GGT AST ALT Alkaline Phosphatase C-React Prot High Sens Total Protein Albumin Globulin Procalcitonin Meds: Medications Escitalopram Oxalate (Escitalopram 10 Mg Tablet) 5 mg PO HS [facility] Last Admin: 12/29/22 21:28 Dose: Not Given Folic Acid (Folic Acid 1 Mg Tablet) 1 mg PO DAILY [facility] Last Admin: 12/30/22 12:07 Dose: Not Given Furosemide (Furosemide 40 Mg Tablet) 40 mg PO QDAY [facility] Hydromorphone HCl (Hydromorphone 0.5 Mg/0.5 Ml Syringe) 0.5 mg IV Q4HP PRN; Protocol PRN Reason: Per Pain Protocol Last Admin: 12/30/22 12:22 Dose: 0.5 mg Hydroxyzine HCl (Hydroxyzine 25 Mg Tablet) 25 mg PO DAILYP PRN PRN Reason: Anxiety Piperacillin Sod/Tazobactam (Sod 3.375 gm/ Dextrose) 50 mls @ 100 mls/hr IV Q6H [facility]; Protocol Last Infusion: 12/30/22 13:56 Dose: Infused Vancomycin HCl 1,000 mg/ (Sodium Chloride) 250 mls @ 250 mls/hr IV Q8H [facility] Last Infusion: 12/30/22 10:26 Dose: Infused Iron Carb/Multivit/[place]/Folic Acid (Multivit,Ther Iron,Ca,Fa & Min 1 Tablet) 1 tab PO DAILY [facility] Last Admin: 12/30/22 12:07 Dose: Not Given Lactulose (Lactulose 20 Gm/30 Ml Oral.Jennifer) 20 gm PO DAILY [facility] Omeprazole (Omeprazole 20 Mg Capsule) 20 mg PO DAILYP PRN PRN Reason: Acid Reflux Ondansetron HCl (Ondansetron 4 Mg Odt Tablet) 4 mg SL Q8HP PRN PRN Reason: Nausea Acamprosate 333 Mg (Tablets,Dose Pack) 1 dose PO TID [facility] Prednisone (Prednisone 20 Mg Tablet) 40 mg PO QAMCC [facility] Quetiapine Fumarate (Quetiapine 25 Mg Tablet) 50 mg PO BID [facility] Spironolactone (Spironolactone 25 Mg Tablet) 100 mg PO DAILY [facility] Temazepam (Temazepam 15 Mg Capsule) 15 mg PO HSP PRN PRN Reason: Insomnia Thiamine HCl (Thiamine 100 Mg Tablet) 100 mg PO DAILY [facility] Last Admin: 12/30/22 12:08 Dose: Not Given Vancomycin HCl (Vancomycin Per Pharmacy) 1 order IV UD [facility]; Protocol A/P Assessment and plan (1) Alcoholic hepatitis: Assessment and plan: He has been on prednisone 40mg for 4 weeks now and Maddrey's score has fallen to 48. We would like to initiate taper when Maddrey's score falls to 32 or less, but if Ortho feels strongly that prednisone reduction is needed for wound healing, we could cautiously decrease to prednisone 20mg daily. Status: Acute (2) Cellulitis and abscess of right lower extremity: Status: Acute Time Spent With Patient Time: Total time spent is greater than 50% in coordination of care (as documented) at patient's floor/unit and/or counseling patient:
[2022-12-30] MEDS: predniSONE 20 MG TABLET PO SCH (18:35)
[2022-12-30] MEDS: LACTULOSE 20 GM/30 ML ORAL.SOL PO SCH (18:35)
[2022-12-30] MEDS: QUEtiapine 25 MG TABLET PO SCH (20:48)
[2022-12-30] MEDS: ESCITALOPRAM 10 MG TABLET PO SCH (20:48)
[2022-12-30] MEDS: ACAMPROSATE 333 MG PO SCH (20:49)
[2022-12-30] MEDS ORDERED: oxyCODONE IR 5 MG TABLET PO ONE (21:37)
[2022-12-31] MEDS: VANCOMYCIN 1,000 MG in 0.9 % SODIUM CHLORIDE 250 ML IV SCH ×2 (03:27→11:42)
[2022-12-31] MEDS: oxyCODONE IR 5 MG TABLET PO PRN ×2 (05:23→16:25)
[2022-12-31] MEDS: PIPERACILLIN SODIUM/TAZOBACTAM 3.375 GM in DEXTROSE 5% IN WATER 50 ML IV SCH ×3 (05:23→17:51)
[2022-12-31] MEDS: predniSONE 20 MG TABLET PO SCH (08:06)
[2022-12-31] MEDS: HYDROmorphone 0.5 MG/0.5 ML SYRINGE IV PRN ×4 (08:07→23:23)
--- NOTE | 2022-12-31 08:08 | Operative Note ---
DATE OF OPERATION: 12/30/2022 DATE OF PROCEDURE: 12/30/2022 PREOPERATIVE DIAGNOSIS: Right ankle abscess with synovitis, possible osteomyelitis. POSTOPERATIVE DIAGNOSIS: Right ankle abscess with synovitis, possible osteomyelitis. PROCEDURE: Right ankle I and D abscess, open arthrotomy and synovectomy, debridement and irrigation, and debridement of bony osteo with rongeur, with one drain placement. SURGEON: Miles Grubbs M.D. EDITOR GREETING CARD: Mars Morillo PA-C. This providers expertise and technical skill were required throughout the case. The COLLEEN assisted with preoperative coordination, intraoperative retraction, wound closure, and dressing and splint application, as well as postoperative documentation and care coordination. ANESTHESIA: General LMA anesthesia. COMPLICATIONS: None. ESTIMATED BLOOD LOSS: 10 mL. TOURNIQUET TIME: 20 minutes. This was an Esmarch at ankle level. DESCRIPTION OF PROCEDURE: The patient was brought to the operating room, put to sleep with general LMA anesthesia. Once asleep, the patient had the right ankle sterilely prepped and draped in the usual sterile fashion. A timeout was performed confirming this as the operative site by initials, consent form, and x-ray. The leg was exsanguinated and tourniquet was inflated. This was an Esmarch wrapped about 6 times over a towel to ensure adequate padding. This was up for 20 minutes of duration. We made about an inch and half incision over an open area that had been I and D'd prior. This was extended, we cut out the multiple holes over the abscess and brownish purulence was expressed. This extended well anteriorly and posteriorly and there was bony erosion. This was rongeured on the medial malleolus, and was noted on MRI to have osteomyelitis. This was debrided thoroughly extending into the joint. I aspirated the joint with an 18-gauge needle. An arthrotomy was performed and a synovectomy of the ankle joint was accomplished. We thoroughly irrigated this area capsular closed. We placed one drain, a 7 inch Bengali drain with a JULES suction device. Once this was done, we were able to then suture the drain into place, so it would not pull out of the skin. Xeroform was placed over the wounds and we closed the wound with interrupted 3-0 nylon, 4 x 4's, and ABD was placed and an Kraig bandage from foot to mid calf was placed. The tourniquet was deflated at 20 minutes. BLOOD LOSS: 10 mL. COMPLICATIONS: None. DISPOSITION: PACU. Patient did not receive additional antibiotics given the fact he is already on antibiotics. [email or web address] Job ID: [id number] Doc ID: [id number] Miles Grubbs MD
[2022-12-31] MEDS: LACTULOSE 20 GM/30 ML ORAL.SOL PO SCH (09:07)
[2022-12-31] MEDS: MULTIVIT,THER IRON,CA,FA & MIN 1 TABLET PO SCH (09:07)
[2022-12-31] MEDS: QUEtiapine 25 MG TABLET PO SCH ×2 (09:07→21:43)
[2022-12-31] MEDS: SPIRONOLACTONE 25 MG TABLET PO SCH (09:07)
[2022-12-31] MEDS: FOLIC ACID 1 MG TABLET PO SCH (09:07)
[2022-12-31] MEDS: THIAMINE 100 MG TABLET PO SCH (09:07)
[2022-12-31] MEDS: FUROSEMIDE 40 MG TABLET PO SCH (09:07)
[2022-12-31] MEDS: ACAMPROSATE 333 MG PO SCH ×3 (09:07→21:44)
[2022-12-31 09:28] LABS: Basophils # (Auto) 0.01 K/mcL (0.00-0.30); Basophils % (Auto) 0.1 % (0.0-2.0); Eosinophils # (Auto) 0 K/mcL (0.00-0.70); Eosinophils % (Auto) 0 % (0.0-7.0); Hematocrit 24.6 % (40.1-51.0); Hemoglobin 8.8 g/dL (13.7-17.5); Lymphocytes # (Auto) 0.44 K/mcL (1.50-4.80); Lymphocytes % (Auto) 4.1 % (15.5-49.0); Mean Cell Volume 89.1 fL (80.0-100.0); Mean Corpuscular HGB Conc 35.8 g/dL (31.0-36.0); Mean Platelet Volume 10.5 fL (8.8-12.5); Monocytes # (Auto) 0.57 K/mcL (0.10-0.90); Monocytes % (Auto) 5.4 % (1.0-12.0); Neutrophils % (Auto) 89.9 % (38.0-78.0); Platelet Count 108 K/mcL (140-440); RBC 2.76 M/mcL (4.63-6.08); Red Cell Distribution Width 20.3 % (11.5-14.5); WBC 10.6 K/mcL (4.5-11.0)
[2022-12-31 09:48] LABS: ALT/SGPT 89 U/L (<40); AST/SGOT 53 U/L (<40); Albumin 2.3 gm/dL (3.2-5.2); Albumin/Globulin Ratio 1.1 (1.0-2.3); Alkaline Phosphatase 156 U/L (39-117); Bilirubin,Total 12.1 mg/dL (0.1-1.0); Blood Urea Nitrogen 27 mg/dL (6-20); Calcium 8.2 mg/dL (8.6-10.4); Carbon Dioxide 21 mmol/L (22-30); Chloride 101 mmol/L (96-108); Globulin 2.1 gm/dL (2.2-3.7); Glucose 146 mg/dL (70-105)
[2022-12-31] MEDS ORDERED: LACTULOSE 20 GM/30 ML ORAL.SOL PO SCH (12:00)
--- NOTE | 2022-12-31 12:10 | Internal Med Progress Note ---
SUBJECTIVE Subjective Patient information: Note initiated : 12/31/22 at 12:07 pm Service Date, if different from initiated Date: [] Patient: Lorenzo Iraheta 32 y/o M admitted on 12/29/22 for Sepsis in right ankle. Chief Complaint: [] Principal diagnosis: Abscess/alcoholic hepatitis Interval history: 32 year old white male with alcoholic hepatitis on prednisone 40mg due to Maddrey's greater than 32. He is feeling better but has not had a bowel movement. Significant other notes he is "out of it", but the patient is alert and talkative this morning. Feeling better since I and D yesterday, requiring PO oxycodone per nurse. Mom and SO at bedside. Constitutional Vitals: Vital Signs Temp Pulse Resp BP Pulse Ox O2 Del Method O2 Flow Rate 97.6 F 110 H 18 124/75 99 Room Air 0 12/31/22 08:00 12/31/22 08:00 12/31/22 08:00 12/31/22 08:00 12/31/22 08:00 12/31/22 08:00 12/31/22 08:00 Period Temp Pulse Resp BP Sys/Flores Pulse Ox O2 Del Method O2 Flow Rate Last 24 Hr 97.0 F-98.6 F 97-123 10-26 100-124/44-75 97-100 Room Air-Room Air 0-0 Intake and Output 12/31/22 12/31/22 12/31/22 03:59 11:59 19:59 Intake Total 303 300 Output Total 650 350 Balance -347 -50 Weight 175 lb Intake & Output: Intake & Output 12/31/22 12/31/22 12/31/22 03:59 11:59 19:59 Intake Total 303 300 Output Total 650 350 Balance -347 -50 Weight 175 lb Intake: IV 303 300 Zosyn 3.375 gm In Dextrose 5% 53 50 in Water 50 ml @ 100 mls/hr IV Q6H [facility] Rx#:[id number] Vancomycin 1,000 mg In Sodium 250 250 Chloride 0.9% 250 ml @ 250 mls/ hr IV Q8H YOAN Rx#:[id number] Output: Drainage 100 Right Lower Ankle JULES Drain 100 Void Amount 550 350 Other: Urine Appearance Clear Urine Color Tea Colored Tea Colored Urine Odor Normal General appearance: average body habitus, cooperative and no acute distress Head Head exam: Present atraumatic, normal inspection and normocephalic Eye Eye exam: Present scleral icterus Neck Neck exam: Present normal inspection Neurological Exam Additional comments: Tremor Skin Additional comments: jaundiced OBJ DATA Labs 12/31/22 08:29 12/31/22 08:29 Labs: Abnormal Lab Results 12/31/22 12/31/22 12/30/22 08:29 08:29 08:29 WBC RBC 2.76 L Hgb 8.8 L Hct 24.6 L POC Hct MCHC RDW 20.3 H Plt Count 108 L Immature Gran % (Auto) Neut % (Auto) 89.9 H Lymph % (Auto) 4.1 L Lymph # (Auto) 0.44 L [place] # (Auto) Immature Gran # Absolute Neutrophils 9.57 H POC PT POC INR POC VBG pCO2 at Temp POC VBG HCO3 POC VBG Total CO2 POC VBG Base Excess VBG Lactic Acid POC Sodium Sodium 132 L 132 L Potassium Chloride Carbon Dioxide 21 L 20 L POC Total CO2 POC BUN BUN 27 H 34 H Glucose 146 H 109 H POC Glucose Calcium 8.2 L 7.9 L POC WB Ioniz Calcium Total Bilirubin 12.1 H 13.2 H GGT AST 53 H 53 H ALT 89 H 93 H Alkaline Phosphatase 156 H 161 H C-React Prot High Sens Total Protein 4.4 L 4.3 L Albumin 2.3 L 2.2 L Globulin 2.1 L 2.1 L Procalcitonin 12/30/22 12/29/22 12/29/22 08:29 17:01 16:47 WBC 11.7 H RBC 2.96 L Hgb 9.4 L Hct 26.0 L POC Hct MCHC 36.2 H RDW 19.9 H Plt Count 102 L Immature Gran % (Auto) 0.6 H Neut % (Auto) Lymph % (Auto) 10.8 L Lymph # (Auto) 1.26 L [place] # (Auto) 1.39 H Immature Gran # 0.07 H Absolute Neutrophils 8.45 H POC PT 19.9 H POC INR 1.7 H POC VBG pCO2 at Temp POC VBG HCO3 POC VBG Total CO2 POC VBG Base Excess VBG Lactic Acid POC Sodium Sodium Potassium Chloride Carbon Dioxide POC Total CO2 POC BUN BUN Glucose POC Glucose Calcium POC WB Ioniz Calcium Total Bilirubin GGT 140 H AST ALT Alkaline Phosphatase C-React Prot High Sens Total Protein Albumin Globulin Procalcitonin 12/29/22 12/29/22 12/29/22 16:47 15:01 15:00 WBC RBC Hgb Hct POC Hct MCHC RDW Plt Count Immature Gran % (Auto) Neut % (Auto) Lymph % (Auto) Lymph # (Auto) [place] # (Auto) Immature Gran # Absolute Neutrophils POC PT POC INR POC VBG pCO2 at Temp 32.5 L POC VBG HCO3 19.8 L POC VBG Total CO2 21.0 L POC VBG Base Excess -5.0 L VBG Lactic Acid 2.4 H POC Sodium Sodium 126 L Potassium 3.2 L Chloride 95 L Carbon Dioxide 19 L POC Total CO2 POC BUN BUN 31 H Glucose 171 H POC Glucose Calcium 7.9 L POC WB Ioniz Calcium Total Bilirubin 11.9 H GGT AST 56 H ALT 93 H Alkaline Phosphatase 154 H C-React Prot High Sens Total Protein 4.1 L Albumin 2.3 L Globulin 1.8 L Procalcitonin 0.73 H 12/29/22 12/29/22 12/29/22 15:00 15:00 15:00 WBC 14.7 H RBC 2.86 L Hgb 9.3 L Hct 25.5 L POC Hct 33.0 L MCHC 36.5 H RDW 20.3 H Plt Count 112 L Immature Gran % (Auto) 1.3 H Neut % (Auto) 80.0 H Lymph % (Auto) 6.1 L Lymph # (Auto) 0.90 L [place] # (Auto) 1.65 H Immature Gran # 0.19 H Absolute Neutrophils 11.76 H POC PT POC INR POC VBG pCO2 at Temp POC VBG HCO3 POC VBG Total CO2 POC VBG Base Excess VBG Lactic Acid POC Sodium 129 L Sodium Potassium Chloride Carbon Dioxide POC Total CO2 20.0 L POC BUN 35 H BUN Glucose POC Glucose 201 H Calcium POC WB Ioniz Calcium 1.11 L Total Bilirubin GGT AST ALT Alkaline Phosphatase C-React Prot High Sens 40.2 H Total Protein Albumin Globulin Procalcitonin Meds: Medications Escitalopram Oxalate (Escitalopram 10 Mg Tablet) 5 mg PO HS [facility] Last Admin: 12/30/22 20:48 Dose: 5 mg Folic Acid (Folic Acid 1 Mg Tablet) 1 mg PO DAILY [facility] Last Admin: 12/31/22 09:07 Dose: 1 mg Furosemide (Furosemide 40 Mg Tablet) 40 mg PO QDAY [facility] Last Admin: 12/31/22 09:07 Dose: 40 mg Hydromorphone HCl (Hydromorphone 0.5 Mg/0.5 Ml Syringe) 0.5 mg IV Q4HP PRN; Protocol PRN Reason: Per Pain Protocol Last Admin: 12/31/22 08:07 Dose: 0.5 mg Hydroxyzine HCl (Hydroxyzine 25 Mg Tablet) 25 mg PO DAILYP PRN PRN Reason: Anxiety Last Admin: 12/31/22 10:55 Dose: 25 mg Piperacillin Sod/Tazobactam (Sod 3.375 gm/ Dextrose) 50 mls @ 100 mls/hr IV Q6H [facility]OAN; Protocol Last Infusion: 12/31/22 06:11 Dose: Infused Iron Carb/Multivit/[place]/Folic Acid (Multivit,Ther Iron,Ca,Fa & Min 1 Tablet) 1 tab PO DAILY [facility] Last Admin: 12/31/22 09:07 Dose: 1 tab Lactulose (Lactulose 20 Gm/30 Ml Oral.Jennifer) 20 gm PO DAILY [facility] Last Admin: 12/31/22 09:07 Dose: 20 gm Lactulose (Lactulose 20 Gm/30 Ml Oral.Jennifer) 30 gm PO Q2H [facility]AN Omeprazole (Omeprazole 20 Mg Capsule) 20 mg PO DAILYP PRN PRN Reason: Acid Reflux Last Admin: 12/31/22 05:59 Dose: 20 mg Ondansetron HCl (Ondansetron 4 Mg Odt Tablet) 4 mg SL Q8HP PRN PRN Reason: Nausea Oxycodone HCl (Oxycodone Ir 5 Mg Tablet) 5 mg PO Q6HP PRN; Protocol PRN Reason: Per Pain Protocol Last Admin: 12/31/22 05:23 Dose: 5 mg Acamprosate 333 Mg (Tablets,Dose Pack) 1 dose PO TID [facility] Last Admin: 12/31/22 09:07 Dose: 1 dose Prednisone (Prednisone 20 Mg Tablet) 40 mg PO [facility] Last Admin: 12/31/22 08:06 Dose: 40 mg Quetiapine Fumarate (Quetiapine 25 Mg Tablet) 50 mg PO BID [facility] Last Admin: 12/31/22 09:07 Dose: 50 mg Spironolactone (Spironolactone 25 Mg Tablet) 100 mg PO DAILY [facility] Last Admin: 12/31/22 09:07 Dose: 100 mg Temazepam (Temazepam 15 Mg Capsule) 15 mg PO HSP PRN PRN Reason: Insomnia Thiamine HCl (Thiamine 100 Mg Tablet) 100 mg PO DAILY [facility] Last Admin: 12/31/22 09:07 Dose: 100 mg A/P Assessment and plan (1) Alcoholic hepatitis: Assessment and plan: Reviewed case with Dr. Juarez and hospitalist Dr. Henderson. we have noted Dr. Henderson's concerns about ongoing prednisone use and immunosuppression while also recognizing his liver failure causes immunosuppression. When we attempted to reduce his prednisone use last week, his liver function worsened. I had a dalia conversation with the patient, his SO Teodora Titus, and his mother that it can be difficult to prioritize competing comorbidities in a medically complex patient and his steroid use can contribute to poor wound healing and infection. However, he seems to be improved after I and D and his Maddrey's score remains greater than 32, so we would recommend continuing his current dose of prednisone 40mg daily. A Maddrey's score greater than 32 carries a roughly 40 % risk of mortality in the next 30 days. There is limited data that pentoxyfylline is useful. I would like him to have a bowel movement before discharge and have spoken to his nurse, Deepika, who will give him lactulose 30ml PO q 2 hours until he has a bowel movement. When Dr Henderson and Dr. Grubbs feel the patient is ready to discharge, we will continue to follow him closely as an outpatient with we ekly labs. Status: Acute Time Spent With Patient Time: Total time spent is greater than 50% in coordination of care (as documented) at patient's floor/unit and/or counseling patient: Subsequent: Total time with patient: 25 - 34 minutes
[2022-12-31] MEDS ORDERED: FLEETS ADULT ENEMA PR ONE (12:26)
--- NOTE | 2022-12-31 15:02 | Internal Med Progress Note ---
SUBJECTIVE Subjective Patient information: Note initiated : 12/31/22 at 2:53 pm Service Date, if different from initiated Date: [] Patient: Lorenzo Iraheta 32 y/o M admitted on 12/29/22 for Sepsis in right ankle. Chief Complaint: [] Principal diagnosis: Abscess/alcoholic hepatitis Additional PMFSH (Level 3 Only): Patient is a 32 years old male with past medical history of alcoholic cirrhosis with portal hypertension, moderate ascites and splenomegaly, perisplenic and perigastric varices, severe alcoholic hepatitis on prednisone, hyperammonemia, alcohol use disorder, currently off alcohol noted area of redness on his right ankle about a week ago. Patient has been seeing GI on regular basis. Patient is on prednisone 40 mg daily for alcoholic hepatitis for about a month now. He also takes spironolactone for cirrhosis. Patient reports he has been off alcohol for 78 days now. About a week ago he noted redness on his right ankle, GI thought it was erythema nodosum. Since then it has been enlarging in size, becoming painful with superficial skin scaly skin. It is very tender to touch. He reports no fever or chills. He reports no history of MRSA. On presentation patient had tachycardia heart rate 138, tachypnea respiratory rate 26, afebrile, BP 97/57. WBC 14,000 down from 24,000 a month ago, he moglobin 9.3, platelets 112. Lactic acid 2.4, sodium 129, potassium 3.5, glucose 201. CRP 40, procalcitonin 0.73, ESR 6. CT scan right ankle showed fluid collection medial and superficial to medial malleolus and tibia measuring 6.5 x 5.7 x 2.5 cm. 12/30. Low-grade fever 99.3 last night. Girlfriend thinks patient is a bit loopy however he was alert and oriented. Patient is going for ankle washout later today per ortho. Leukocytosis trended down to 11,000. LFTs stable 12/31. Patient underwent incision and drainage of ankle abscess. Leukocytosis resolved. He is afebrile. Today he is feeling better. He has not had a bowel movement yet. Girlfriend feels he is a bit loopy and concerned about hyperammonemia however patient is alert and appears coherent. Pain is controlled on oxycodone and Dilaudid. Review of system Patient reports no fever no chills No headache, no visual problems, no diplopia No neck pain Denies shortness of breath, cough, sputum production No nausea vomiting or diarrhea No dysuria or hematuria Denies excessive thirst or cold Denies depression Physical examination Alert and awake, sitting up comfortably Normocephalic, atraumatic Scleral icterus present Chest is clear bilaterally S1 and S2, sinus tachycardia, no murmurs heard Abdomen is mildly distended, soft and nontender otherwise. Mild fluid thrill Alert and oriented, no focal deficits Right ankle status post incision and drainage, dressing is clean dry and intact Appropriate mood and pleasant affect Assessment and plan Sepsis. Patient presented with tachycardia heart rate 138, tachypnea respiratory rate 26, leukocytosis 14,000 and right ankle abscess. Right ankle abscess. CT scan showing fluid collection superficial to medial malleolus and tibia measuring 6.5 x 5.7 x 2.5 cm. Status post incision and drainage by Dr. Leonard on 12/30. Abscess culture grew MSSA. MRSA screen negative. Will DC vancomycin. Continue with Zosyn for now Alcoholic liver cirrhosis with ascites. Liver profile stable. Continue diure tics and prednisone. He is closely followed up at GI clinic as outpatient. Hepatic encephalopathy. Ammonia 60. Continue lactulose Alcoholic hepatitis. Patient on steroid for Maddrey score over 32, discussed with GI team patient is showing improvement on steroids, attempt to wean him off was not successful with rising LFTs. He is back on steroids. On prednisone 40 mg per GI team. GI input appreciated Alcohol use disorder. Patient states he has been clear of alcohol for 78 days now. Encouraged him to remain abstinent. DVT prophylaxis with SCDs. Full code Total time taken 40 minutes. Constitutional Vitals: Vital Signs Temp Pulse Resp BP Pulse Ox O2 Del Method O2 Flow Rate 98.3 F 114 H 18 132/78 97 Room Air 0 12/31/22 12:00 12/31/22 12:00 12/31/22 14:00 12/31/22 12:00 12/31/22 14:00 12/31/22 14:00 12/31/22 14:00 Period Temp Pulse Resp BP Sys/Flores Pulse Ox O2 Del Method O2 Flow Rate Last 24 Hr 97.0 F-98.6 F 97-123 10-26 100-132/44-78 97-100 Room Air-Room Air 0-0 Intake and Output 12/31/22 12/31/22 12/31/22 03:59 11:59 19:59 Intake Total 303 300 50 Output Total 650 350 Balance -347 -50 50 Weight 79.379 kg Intake & Output: Intake & Output 12/31/22 12/31/22 12/31/22 03:59 11:59 19:59 Intake Total 303 300 50 Output Total 650 350 Balance -347 -50 50 Weight 79.379 kg Intake: IV 303 300 50 Zosyn 3.375 gm In Dextrose 5% 53 50 50 in Water 50 ml @ 100 mls/hr IV Q6H [facility] Rx#:[id number] Vancomycin 1,000 mg In Sodium 250 250 Chloride 0.9% 250 ml @ 250 mls/ hr IV Q8H [facility] Rx#:[id number] Output: Drainage 100 Right Lower Ankle JULES Drain 100 Void Amount 550 350 Other: Urine Appearance Clear Urine Color Tea Colored Tea Colored Urine Odor Normal OBJ DATA Labs 12/31/22 08:29 12/31/22 08:29 Labs: Abnormal Lab Results 12/31/22 12/31/22 12/30/22 08:29 08:29 08:29 WBC RBC 2.76 L Hgb 8.8 L Hct 24.6 L POC Hct MCHC RDW 20.3 H Plt Count 108 L Immature Gran % (Auto) Neut % (Auto) 89.9 H Lymph % (Auto) 4.1 L Lymph # (Auto) 0.44 L [place] # (Auto) Immature Gran # Absolute Neutrophils 9.57 H POC PT POC INR POC VBG pCO2 at Temp POC VBG HCO3 POC VBG Total CO2 POC VBG Base Excess VBG Lactic Acid POC Sodium Sodium 132 L 132 L Potassium Chloride Carbon Dioxide 21 L 20 L POC Total CO2 POC BUN BUN 27 H 34 H Glucose 146 H 109 H POC Glucose Calcium 8.2 L 7.9 L POC WB Ioniz Calcium Total Bilirubin 12.1 H 13.2 H GGT AST 53 H 53 H ALT 89 H 93 H Alkaline Phosphatase 156 H 161 H C-React Prot High Sens Total Protein 4.4 L 4.3 L Albumin 2.3 L 2.2 L Globulin 2.1 L 2.1 L Procalcitonin 12/30/22 12/29/22 12/29/22 08:29 17:01 16:47 WBC 11.7 H RBC 2.96 L Hgb 9.4 L Hct 26.0 L POC Hct MCHC 36.2 H RDW 19.9 H Plt Count 102 L Immature Gran % (Auto) 0.6 H Neut % (Auto) Lymph % (Auto) 10.8 L Lymph # (Auto) 1.26 L [place] # (Auto) 1.39 H Immature Gran # 0.07 H Absolute Neutrophils 8.45 H POC PT 19.9 H POC INR 1.7 H POC VBG pCO2 at Temp POC VBG HCO3 POC VBG Total CO2 POC VBG Base Excess VBG Lactic Acid POC Sodium Sodium Potassium Chloride Carbon Dioxide POC Total CO2 POC BUN BUN Glucose POC Glucose Calcium POC WB Ioniz Calcium Total Bilirubin GGT 140 H AST ALT Alkaline Phosphatase C-React Prot High Sens Total Protein Albumin Globulin Procalcitonin 12/29/22 12/29/22 12/29/22 16:47 15:01 15:00 WBC RBC Hgb Hct POC Hct MCHC RDW Plt Count Immature Gran % (Auto) Neut % (Auto) Lymph % (Auto) Lymph # (Auto) [place] # (Auto) Immature Gran # Absolute Neutrophils POC PT POC INR POC VBG pCO2 at Temp 32.5 L POC VBG HCO3 19.8 L POC VBG Total CO2 21.0 L POC VBG Base Excess -5.0 L VBG Lactic Acid 2.4 H POC Sodium Sodium 126 L Potassium 3.2 L Chloride 95 L Carbon Dioxide 19 L POC Total CO2 POC BUN BUN 31 H Glucose 171 H POC Glucose Calcium 7.9 L POC WB Ioniz Calcium Total Bilirubin 11.9 H GGT AST 56 H ALT 93 H Alkaline Phosphatase 154 H C-React Prot High Sens Total Protein 4.1 L Albumin 2.3 L Globulin 1.8 L Procalcitonin 0.73 H 12/29/22 12/29/22 12/29/22 15:00 15:00 15:00 WBC 14.7 H RBC 2.86 L Hgb 9.3 L Hct 25.5 L POC Hct 33.0 L MCHC 36.5 H RDW 20.3 H Plt Count 112 L Immature Gran % (Auto) 1.3 H Neut % (Auto) 80.0 H Lymph % (Auto) 6.1 L Lymph # (Auto) 0.90 L [place] # (Auto) 1.65 H Immature Gran # 0.19 H Absolute Neutrophils 11.76 H POC PT POC INR POC VBG pCO2 at Temp POC VBG HCO3 POC VBG Total CO2 POC VBG Base Excess VBG Lactic Acid POC Sodium 129 L Sodium Potassium Chloride Carbon Dioxide POC Total CO2 20.0 L POC BUN 35 H BUN Glucose POC Glucose 201 H Calcium POC WB Ioniz Calcium 1.11 L Total Bilirubin GGT AST ALT Alkaline Phosphatase C-React Prot High Sens 40.2 H Total Protein Albumin Globulin Procalcitonin Meds: Medications Escitalopram Oxalate (Escitalopram 10 Mg Tablet) 5 mg PO HS [facility] Last Admin: 12/30/22 20:48 Dose: 5 mg Folic Acid (Folic Acid 1 Mg Tablet) 1 mg PO DAILY [facility] Last Admin: 12/31/22 09:07 Dose: 1 mg Furosemide (Furosemide 40 Mg Tablet) 40 mg PO QDAY [facility] Last Admin: 12/31/22 09:07 Dose: 40 mg Hydromorphone HCl (Hydromorphone 0.5 Mg/0.5 Ml Syringe) 0.5 mg IV Q4HP PRN; Protocol PRN Reason: Per Pain Protocol Last Admin: 12/31/22 12:21 Dose: 0.5 mg Hydroxyzine HCl (Hydroxyzine 25 Mg Tablet) 25 mg PO DAILYP PRN PRN Reason: Anxiety Last Admin: 12/31/22 10:55 Dose: 25 mg Piperacillin Sod/Tazobactam (Sod 3.375 gm/ Dextrose) 50 mls @ 100 mls/hr IV Q6H [facility]; Protocol Last Infusion: 12/31/22 13:15 Dose: Infused Iron Carb/Multivit/[employer]/Folic Acid (Multivit,Ther Iron,Ca,Fa & Min 1 Tablet) 1 tab PO DAILY [facility] Last Admin: 12/31/22 09:07 Dose: 1 tab Lactulose (Lactulose 20 Gm/30 Ml Oral.Jennifer) 20 gm PO DAILY [facility] Last Admin: 12/31/22 09:07 Dose: 20 gm Omeprazole (Omeprazole 20 Mg Capsule) 20 mg PO DAILYP PRN PRN Reason: Acid Reflux Last Admin: 12/31/22 05:59 Dose: 20 mg Ondansetron HCl (Ondansetron 4 Mg Odt Tablet) 4 mg SL Q8HP PRN PRN Reason: Nausea Oxycodone HCl (Oxycodone Ir 5 Mg Tablet) 5 mg PO Q6HP PRN; Protocol PRN Reason: Per Pain Protocol Last Admin: 12/31/22 05:23 Dose: 5 mg Acamprosate 333 Mg (Tablets,Dose Pack) 1 dose PO TID [facility] Last Admin: 12/31/22 09:07 Dose: 1 dose Prednisone (Prednisone 20 Mg Tablet) 40 mg PO [facility] Last Admin: 12/31/22 08:06 Dose: 40 mg Quetiapine Fumarate (Quetiapine 25 Mg Tablet) 50 mg PO BID [facility] Last Admin: 12/31/22 09:07 Dose: 50 mg Spironolactone (Spironolactone 25 Mg Tablet) 100 mg PO DAILY [facility] Last Admin: 12/31/22 09:07 Dose: 100 mg Temazepam (Temazepam 15 Mg Capsule) 15 mg PO HSP PRN PRN Reason: Insomnia Thiamine HCl (Thiamine 100 Mg Tablet) 100 mg PO DAILY [facility] Last Admin: 12/31/22 09:07 Dose: 100 mg A/P Time Spent With Patient Time: Total time spent is greater than 50% in coordination of care (as documented) at patient's floor/unit and/or counseling patient:
[2022-12-31] MEDS: ESCITALOPRAM 10 MG TABLET PO SCH (21:43)
[2023-01-01] MEDS: oxyCODONE IR 5 MG TABLET PO PRN ×2 (00:07→05:58)
[2023-01-01] MEDS: PIPERACILLIN SODIUM/TAZOBACTAM 3.375 GM in DEXTROSE 5% IN WATER 50 ML IV SCH ×3 (00:07→12:29)
[2023-01-01] MEDS: HYDROmorphone 0.5 MG/0.5 ML SYRINGE IV PRN ×2 (03:35→12:33)
[2023-01-01] MEDS: predniSONE 20 MG TABLET PO SCH (07:51)
[2023-01-01] MEDS: LACTULOSE 20 GM/30 ML ORAL.SOL PO SCH (09:02)
[2023-01-01] MEDS: FUROSEMIDE 40 MG TABLET PO SCH (09:02)
[2023-01-01] MEDS: MULTIVIT,THER IRON,CA,FA & MIN 1 TABLET PO SCH (09:02)
[2023-01-01] MEDS: THIAMINE 100 MG TABLET PO SCH (09:03)
[2023-01-01] MEDS: ACAMPROSATE 333 MG PO SCH (09:03)
[2023-01-01] MEDS: FOLIC ACID 1 MG TABLET PO SCH (09:03)
[2023-01-01] MEDS: QUEtiapine 25 MG TABLET PO SCH (09:03)
[2023-01-01] MEDS: SPIRONOLACTONE 25 MG TABLET PO SCH (09:03)
--- NOTE | 2023-01-01 10:35 | Discharge Summary ---
Discharge Provider Provider IMPORTANT FOLLOW-UP INFORMATION FOR PCP: Patient information: Note initiated : 01/01/23 at 10:28 am Service Date, if different from initiated Date: [] Patient: Lorenzo Iraheta 32 y/o M admitted on 12/29/22 for Sepsis in right ankle. Chief Complaint: [] Date of admission: 12/29/22 19:00 Discharge date: 01/01/23 Primary care physician: Codi Jama Consults: 12/29/22 Consult to Physician [CONS] Stat Comment: Consulting Provider: Miles Grubbs Reason For Exam: Physician to Consult Consult to Physician [CONS] Stat Comment: Consulting Provider: Trace Henderson Reason For Exam: Physician to Consult COURSE Hospital Course Hospital course: Patient is a 32 years old male with past medical history of alcoholic cirrhosis with portal hypertension, moderate ascites and splenomegaly, perisplenic and perigastric varices, severe alcoholic hepatitis on prednisone, hyperammonemia, alcohol use disorder, currently off alcohol noted area of redness on his right ankle about a week ago. Patient has been seeing GI on regular basis. Patient is on prednisone 40 mg daily for alcoholic hepatitis for about a month now. He also takes spironolactone for cirrhosis. Patient reports he has been off alcohol for 78 days now. About a week ago he noted redness on his right ankle, GI thought it was erythema nodosum. Since then it has been enlarging in size, becoming painful with superficial skin scaly skin. It is very tender to touch. He reports no fever or chills. He reports no history of MRSA. On presentation patient had tachycardia heart rate 138, tachypnea respiratory rate 26, afebrile, BP 97/57. WBC 14,000 down from 24,000 a month ago, hemoglobin 9.3, platelets 112. Lactic acid 2.4, sodium 129, potassium 3.5, glucose 201. CRP 40, procalcitonin 0.73, ESR 6. CT scan right ankle showed fluid collection medial and superficial to medial malleolus and tibia measuring 6.5 x 5.7 x 2.5 cm. 12/30. Low-grade fever 99.3 last night. Girlfriend thinks patient is a bit loopy however he was alert and oriented. Patient is going for ankle washout later today per ortho. Leukocytosis trended down to 11,000. LFTs stable 12/31. Patient underwent incision and drainage of ankle abscess. Leukocytosis resolved. He is afebrile. Today he is feeling better. He has not had a bowel movement yet. Girlfriend feels he is a bit loopy and concerned about hyperammonemia however patient is alert and appears coherent. Pain is controlled on oxycodone and Dilaudid. 01/01 Leukocytosis remains resolved. Patient is afebrile. He is having bowel movements on lactulose. Most recent ammonia level 60. Abscess culture is final with MSSA growth. Patient will be transition to Augmentin per discussion with orthopedic to complete her 2-week course. Follow-up with orthopedic as an outpatient. Discharge diagnoses Sepsis. Right ankle abscess. CT scan showing fluid collection superficial to medial malleolus and tibia measuring 6.5 x 5.7 x 2.5 cm. Status post incision and drainage by Dr. Leonard on 12/30. Abscess culture grew MSSA. MRSA screen negative. Patient received vancomycin and Zosyn. Discussed with orthopedic. Patient will be discharged on Augmentin 875 mg twice daily to complete a 2-week course. Follow-up with orthopedic as outpatient Alcoholic liver cirrhosis with ascites. Liver profile stable. Continue diuretics and prednisone. He is closely followed up at GI clinic as outpatient. Hepatic encephalopathy. Ammonia 60. Continue lactulose Alcoholic hepatitis. Patient on steroid for Maddrey score over 32, discussed with GI team patient is showing improvement on steroids, attempt to wean him off was not successful with rising LFTs. He is back on steroids. On prednisone 40 mg per GI team. GI input appreciated Alcohol use disorder. Patient states he has been clear of alcohol for 78 days now. Encouraged him to remain abstinent. Full code Physical examination Alert and awake, sitting up comfortably Normocephalic, atraumatic Scleral icterus present Chest is clear bilaterally S1 and S2, sinus tachycardia, no murmurs heard Abdomen is mildly distended, soft and nontender otherwise. Mild fluid thrill Alert and oriented, no focal deficits Right ankle status post incision and drainage, dressing is clean dry and intact Appropriate mood and pleasant affect Total time taken 40 minutes. Discharge diagnosis: Sepsis, right ankle abscess, alcoholic liver cirrhosis, alcoholic hepatitis Time Spent with Patient Time attestation: Total time spent providing and/or coordinating discharge services: Time spent: Greater than 30 minutes EXAM Constitutional Vitals: Temp Pulse Resp BP Pulse Ox O2 Del Method O2 Flow Rate 97.8 F 112 H 18 124/80 97 Room Air 0 01/01/23 08:00 01/01/23 08:00 01/01/23 08:00 01/01/23 08:00 01/01/23 08:00 01/01/23 08:00 01/01/23 04:00 Discharge Data Data Completed and Pending Labs on day of discharge: Preliminary micro results at discharge 12/29/22 15:08 Blood Culture - Preliminary Blood 12/29/22 15:02 Blood Culture - Preliminary Blood Discharge Plan Patient/Caregiver Discharge Instructions Activity: ambulate only with your walker Diet: Regular Diet Activity Restrictions/Additional Instructions: Empty Right ankle JULES drain twice a day, if less < 5ml remove JULES drain and change dressing. WBAT. Prescriptions: New hydrocodone-acetaminophen 5-325 mg tablet 1 - 2 tab PO Q4H PRN (Reason: Pain) Qty: 30 0RF amoxicillin-pot clavulanate [Augmentin] 500-125 mg tablet 1 tab PO TID MDD 3 10 Days Qty: 30 0RF Rx Instructions: one po tid for 10 days Continued furosemide 40 mg Tablet 40 mg PO QDAY spironolactone 100 mg Tablet 100 mg PO QDAY quetiapine 50 mg Tablet 50 mg PO BID folic acid 1 mg Tablet 1 mg PO DAILY hydroxyzine HCl 25 mg Tablet 25 mg PO Q6 PRN (Reason: Anxiety) escitalopram oxalate 5 mg Tablet 5 mg PO HS ffdftzoy-oly-mmlpe-vit K-lycop 400-20-300 mcg Tablet 1 tab PO DAILY lactulose 20 gram/30 mL solution 20 g PO QDAY Qty: 1200 0RF Discontinued prednisone 20 mg Tablet 20 mg PO DAILY No Action acamprosate 333 mg Tablets,Dose Pack 666 mg PO BID Other Ambulatory Orders: Walker (ONCE) Location: None Selected Ordered By: Miles Grubbs Prescription drug monitoring program results: PDMP reviewed and no issues identified Follow Up Plan Follow up with: Miles Grubbs MD [Physician] - (F/U in office in 2 weeks.) Codi Jama ARNP [Primary Care Provider] - Patient Disposition: Home, Self-Care Rehab Potential: Good I certify that the patient requires SNF services: No Overall status at discharge: patient is not back to baseline Discharge Orders: Discharge Order (Routine); Ordered 12/30/22 Ordered By: Miles Grubbs
== END 2023-01-01 14:10 | disposition home or self-care (01) | DRG 982 ==
LOC: ED 14:07 → MEDSUR 19:00
PROVIDERS: ADMIT Internal Medicine; ATTEND Internal Medicine